=== PATIENT | female | born 1965 | race Caucasian/White ===

== ENCOUNTER 2016-10-17 03:38 | Emergency (ER) | payer OTHER ==
[~2016-10-17] VITALS: Ht 157.5 cm; Wt 87.5 kg
[~2016-10-17 03:38] MED LIST: CELE100C; HYDR-3240 PO; INSU100V13 SQ-INSULIN; INSU100V8 SQ; METF500T4 PO; METF850T2 PO; TRAM50TA2 PO
[2016-10-17 04:09] LABS: PATH.CAST-FLAG NOT PRESENT; SPERM-FLAG NOT PRESENT; SRC-FLAG NOT PRESENT; XTAL-FLAG NOT PRESENT; YLC-FLAG NOT PRESENT
[2016-10-17] MEDS ORDERED: NAPR1TAB21 PO (04:42)
[2016-10-17] MEDS ORDERED: LINA1TAB9 PO (04:42)
[2016-10-17] MEDS ORDERED: INSU100C SQ-INSULIN (04:42)
[2016-10-17] MEDS ORDERED: MORPHINE SULFATE 4 MG/ML, 1ML ONE (04:43)
[2016-10-17] MEDS ORDERED: ONDANSETRON 2MG/ML, 2ML ONE (04:43)
[2016-10-17] MEDS ORDERED: MORPHINE SULFATE 4 MG/ML, 1ML IVPush PRN (05:00)
[2016-10-17] MEDS ORDERED: ONDANSETRON 2MG/ML, 2ML IVPush ONE (05:00)
[2016-10-17] MEDS ORDERED: SODIUM CHLORIDE 0.9% 1,000ML IVBOLUS ONE (05:00)
[2016-10-17] MEDS ORDERED: SODIUM CHLORIDE FLUSH 10ML SYR IVF ONE (05:00)
[2016-10-17 05:51] LABS: ASPARTATE AMINO TRANSFERASE 15 U/L (15-37); BLOOD UREA NITROGEN 15 mg/dL (7-18)
[2016-10-17 05:59] VITALS: BP 113/78
== END 2016-10-17 06:28 | disposition home or self-care (01) ==
LOC: ED 06:22
DX: K52.9 Noninfective gastroenteritis and colitis, unspecified (principal); N30.90 Cystitis, unspecified without hematuria; E11.65 Type 2 diabetes mellitus with hyperglycemia
CPT/HCPCS: 36415; 74176; 80053; 81001; 83690; 85025; 87077; 87086; 87147; 87186; 96361; 96374; 96375; 99285; J2405; J7030